=== PATIENT | female | born 1980 | race Caucasian/White ===

== ENCOUNTER 2022-03-31 05:59 | Emergency (ER) | payer OTHER ==
[~2022-03-31] VITALS: Ht 157.5 cm; Wt 88.0 kg
[2022-03-31] MEDS ORDERED: SYNT50TA PO (06:15)
[2022-03-31] MEDS ORDERED: LIDOCAINE 1% MDV 20ML VIAL XX ONE (08:15)
[2022-03-31 09:57] VITALS: BP 122/67
== END 2022-03-31 10:01 | disposition home or self-care (01) ==
LOC: M ED 05:59
DX: T16.2XXA Foreign body in left ear, initial encounter (principal); Z79.899 Other long term (current) drug therapy; Y92.9 Unspecified place or not applicable; Y93.9 Activity, unspecified; Y99.1 Military activity